=== PATIENT | female | born 1990 | race Caucasian/White ===

== ENCOUNTER → 2019-08-14 10:08 | Outpatient (BNVA) | payer SELFPAY | PROVIDERS: PCP Family Medicine; Visit Provider Family Medicine | DX: I10 Essential (primary) hypertension (principal); M79.641 Pain in right hand | CPT/HCPCS: 80053; 80061; 82044; 85025 ==

== ENCOUNTER → 2019-09-23 08:32 | Outpatient (BNVA) | payer SELFPAY | PROVIDERS: PCP Family Medicine; Visit Provider Family Medicine | DX: R53.83 Other fatigue (principal); Z01.419 Encounter for gynecological examination (general) (routine) without abnormal findings; F17.219 Nicotine dependence, cigarettes, with unspecified nicotine-induced disorders | CPT/HCPCS: 84443; 88175 ==

== ENCOUNTER → 2019-10-10 10:19 | Outpatient (BNVA) | payer SELFPAY | PROVIDERS: PCP Family Medicine; Visit Provider Nurse Practitioner Family | DX: M54.5 Low back pain (principal) | CPT/HCPCS: 81000; 81025 ==

== ENCOUNTER → 2020-01-24 17:56 | Outpatient (BNVA) | payer SELFPAY | PROVIDERS: PCP Family Medicine; Visit Provider Nurse Practitioner Family | DX: M79.671 Pain in right foot (principal) | CPT/HCPCS: 73610; 73630 ==

== ENCOUNTER → 2020-03-25 11:33 | Outpatient (BNVA) | payer SELFPAY | PROVIDERS: PCP Family Medicine; Visit Provider Nurse Practitioner Family | DX: M25.579 Pain in unspecified ankle and joints of unspecified foot (principal) | CPT/HCPCS: 73610 ==

== ENCOUNTER 2020-09-18 13:22 | Emergency (ER) | payer SELFPAY ==
[2020-09-18 13:42] VITALS: BP 120/83; PULSE 113; RESP 24; TEMP 37.3; O2SAT 97; BMI 41.7
[2020-09-18 14:19] VITALS: BP 112/95; PULSE 104; O2SAT 96
[2020-09-18 14:41] VITALS: BP 109/74; PULSE 101; RESP 26; O2SAT 95
--- NOTE | 2020-09-18 15:01 | ECG_ITS ---
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 Measurements Intervals Pablo Rate: 105 P: 50 PA: 140 QRS: 18 QRSD: 86 T: 34 QT: 337 QTc: 447 Interpretive Statements SINUS TACHYCARDIA POSSIBLE LEFT ATRIAL ENLARGEMENT [-0.1mV P WAVE IN V1/V2] LOW QRS VOLTAGE IN PRECORDIAL LEADS [QRS DEFLECTION < 1.0 mV IN CHEST LEADS] ABNORMAL RHYTHM ECG No previous ECG available for comparison Electronically Signed On 09-19-2020 23:15:37 CDT by Brittney Schaefer M.D. [email or web address]
--- NOTE | 2020-09-18 15:01 | XR_ITS ---
WS: [id number] Portable AP upright chest, 09/18/2020 Clinical Data: chest pain Comparison: Portable chest, 03/08/2019. Findings: No nodules, masses or effusions are seen. The heart is normal. The pulmonary vascularity is not increased. No pneumonia or pneumothorax is seen. Monitor leads are on the chest wall. XR/XR chest 1V portable [id number] Impression: Negative chest.
--- NOTE | 2020-09-18 15:01 | W.ED.CHESTPA ---
HPI - Chest Pain General: Chief Complaint: Chest Pain Stated Complaint: SOB, CP Time Seen by Provider: 09/18/20 14:17 Source: patient Mode of arrival: ambulatory Limitations: no limitations History of Present Illness: HPI narrative: NauseaPatient is a 30-year-old female who presents to ED today with a complaint of chest pain and vomiting. Patient tells me on Monday she was placed on clindamycin for abscesses to her groin and axillary regions. Patient states she has been taking the medication throughout the week without issues however this morning took a dose of her clindamycin and shortly after began developing substernal chest pain and nausea. She states she had one episode of vomiting. Patient was then able to eat breakfast. She tells me around lunchtime she took another clindamycin and yet again began developing substernal chest pain and nausea. She then had one episode of vomiting. No blood noted to her vomit. Chest pain that was present prior to the episode of vomiting. She does not feel nauseous currently. She has not had any diarrhea. She is not having abdominal pain. She does not feel short of breath. No cough. Associated symptoms: Reports nausea and vomiting; Deny abdominal pain, dyspnea, fever(s), palpitations or syncope Review of Systems Const: Denies: fever(s), chills, body aches, change in appetite, change in weight, fatigue or malaise Eyes: Denies: change in vision or blurry vision ENMT: Denies: throat pain or odynophagia Card: Reports: chest pain; Denies: palpitations, irregular heart rhythm, edema, swelling of feet/ankles, lightheadedness, syncope, pre-syncope, dyspnea on exertion, orthopnea, leg pain with exertion or acrocyanosis Resp: Denies: dyspnea, productive cough or pain on inspiration GI: Reports: nausea and vomiting; Denies: abdominal pain, hematemesis, coffee ground emesis, dysphagia, heartburn, diarrhea, pain on defecation or change in stool character : Denies: flank pain or dysuria Musc: Denies: neck pain, back pain or joint pain Skin/Breast: Denies: rash Neuro: Denies: headache(s), numbness in extremities, weakness in extremities or sensory changes REPLACED BY [facility] PFSH: Medical History (Updated 09/18/20 @ 16:28 by ANA MARIA Liriano) Essential hypertension Surgical History H/O hernia repair H/O tubal ligation History of cholecystectomy Family History Other Hypertension Social History Smoking and tobacco status: current every day smoker cigarettes Packs smoked per day: 0.5 Alcohol intake: never Female Reproductive History: Date of last menstrual period: 08/13/19 Physical Exam Const: COMMON NORMALS: no acute distress, patient oriented x3, no limitations and alert GENERAL APPEARANCE: cooperative NUTRITIONAL APPEARANCE: obese ORIENTATION/CONSCIOUSNESS: Yes awake, Yes oriented to person and Yes oriented to time HENMT: COMMON NORMALS: normocephalic and atraumatic HEAD & SCALP: normocephalic and atraumatic Neck/C-Spine: COMMON NORMALS: full ROM Chest: COMMONS NORMALS: normal inspection of the chest OTHER: TTP sternal chest Resp: COMMON NORMALS: normal respiratory effort and clear to auscultation bilaterally AUSCULTATION: clear to auscultation bilaterally Cardio: COMMON NORMALS: regular rate and regular rhythm RATE: regular rate RHYTHM: regular rhythm GI: COMMON NORMALS: Normal to inspection, nondistended, normoactive bowel sounds present, Soft to palpation, non-tender, No hepatosplenomegaly present and no masses PALPATION: Yes Soft to palpation and Yes No hepatosplenomegaly present Neuro: COMMON NORMALS: patient oriented x3 SENSORIUM/ORIENTATION: Yes alert, Yes oriented to person and Yes oriented to time Skin: COMMON NORMALS: no rashes or lesions noted GENERAL SKIN EXAM: no rashes or lesions noted Course Vital Signs: Vital signs: Vital Signs Temperature 99.2 F 09/18/20 13:42 Pulse Rate 86 09/18/20 15:44 Respiratory Rate 23 H 09/18/20 15:44 Blood Pressure 121/71 09/18/20 15:44 Pulse Oximetry 95 09/18/20 15:44 MDM - Chest Pain Lab Data: Labs: Lab Results 09/18/20 09/18/20 09/18/20 Range/Units 15:23 15:23 15:23 WBC 13.2 H (4.0-10.0) 10^3/ uL RBC 4.03 L (4.1-5.3) 10^6/u L Hgb 12.5 (11.5-15.3) g/dL Hct 34.5 L (37.0-47.0) % MCV 85.6 (81-99) fL MCH 31.0 (28.0-34.0) pg MCHC 36.2 H (30.0-36.0) g/dL RDW 12.2 (12.1-15.1) % Plt Count 370 (130-400) 10^3/c mm MPV 10.6 H (7.4-10.4) fL Neut % (Auto) 80.1 % Lymph % (Auto) 11.8 % [place] % (Auto) 6.4 % Eos % (Auto) 1.1 % Baso % (Auto) 0.3 % Neut # (Auto) 10.60 H (1.8-7.7) 10^3/u L Lymph # (Auto) 1.6 (0.8-4.8) 10^3/u L [place] # (Auto) 0.9 (0.2-0.9) 10^3/u L Eos # (Auto) 0.1 (0.0-0.8) 10^3/u L Baso # (Auto) 0.0 (0.0-0.1) 10^3/u L Nucleated RBC % (a uto) 0 % Nucleated RBCs # 0.0 /100WBC Sodium 137 (136-145) mmol/L Potassium 3.6 (3.5-5.1) mmol/L Chloride 99 (98-107) mmol/L Carbon Dioxide 28 (22-29) mmol/L Anion Gap 13.6 (5-19) BUN 10 (6-20) mg/dL Creatinine 0.6 (0.5-0.9) mg/dL GFR Calculation 116.6 (90-130) mL/min Glucose 96 (65-115) mg/dL Calculated Osmolal ity 283 L (285-295) mOsm/k g Calcium 9.2 (8.5-10.5) mg/dL Total Bilirubin 0.3 (0.15-1.2) mg/dL AST 20 (0-32) U/L ALT 22 (0-33) U/L Alkaline Phosphata se 64 (35-105) IU/L Troponin T Gen 5 n g/L 6 (0-10) ng/L Total Protein 6.4 L (6.6-8.7) g/dL Albumin 4.2 (3.5-5.2) g/dL Globulin 2.2 (1.3-4.6) g/dL Imaging Data^: CXR: Radiologist's impression: [address] [id number] ReportSigned Patient: Nubia Garcia #: [id number]: 1990Acct#:[id number]/Sex: 30 / FADM Date: 09/18/20Loc: ERRoom/Bed:Attending Dr: Ordering Provider/Ordering MD: Nata Locke Date of Service: 09/18/20 Procedure(s): XR chest 1V portable [id number] Accession Number(s): [id number] Report Number: [id number] WS: [id number] Portable AP upright chest, 09/18/2020 Clinical Data: chest pain Comparison: Portable chest, 03/08/2019. Findings: No nodules, masses or effusions are seen. The heart is normal. The pulmonary vascularity is not increased. No pneumonia or pneumothorax is seen. Monitor leads are on the chest wall. XR/XR chest 1V portable [id number] Impression: Negative chest. Dictated By:Vannesa Valladares MDSigned By:Vannesa Valladares MDSigned Date/Time:09/18/20 1510DD/ 1509 EKG Data^: EKG 1: EKG interpretation date: 09/18/20 EKG interpretation time: 14:04 Interpretation: Sinus tachycardia Rate [address] elevation or depression changes noted Discharge Plan Discharge Patient Disposition: Home Clinical Impression: Atypical chest pain, Adverse reaction to antibiotic Condition: Stable Prescriptions: No Action clindamycin HCl 300 mg capsule 300 mg PO Q8H Qty: 30 RF: 0 promethazine 25 mg tablet 25 mg PO Q6H PRN (Reason: nausea and vomiting) Qty: 10 RF: 0 lisinopril-hydrochlorothiazide 20-25 mg tablet 1 tab PO DAILY Qty: 30 RF: 2 Discharge Orders: Discharge ED (Routine); Ordered 09/18/20 Ordered By: Nata Locke Referrals: Jessica Tilley DO [Primary Care Provider] - Patient Instructions: Chest Pain - Noncardiac Coding Level of Care Code ED Neuro Intensivist Physician for Carlos Trevizo
[2020-09-18 15:35] LABS: Basophils % 0.3 %; Eosinophils # 0.1 10^3/uL (0.0-0.8); Eosinophils % 1.1 %; Hematocrit 34.5 % (37.0-47.0); Hemoglobin 12.5 g/dL (11.5-15.3); Lymphocytes # 1.6 10^3/uL (0.8-4.8); Lymphocytes % 11.8 %; Mean Corpuscular HGB Conc 36.2 g/dL (30.0-36.0); Mean Corpuscular Volume 85.6 fL (81-99); Mean Platelet Volume 10.6 fL (7.4-10.4); Monocytes # 0.9 10^3/uL (0.2-0.9); Monocytes % 6.4 %; Neutrophils % 80.1 %; Nucleated Red Blood Cells % 0 %; Platelet Count 370 10^3/cmm (130-400); Red Blood Count 4.03 10^6/uL (4.1-5.3); Red Cell Distribution Width 12.2 % (12.1-15.1); White Blood Count 13.2 10^3/uL (4.0-10.0)
[2020-09-18 15:44] VITALS: BP 121/71; PULSE 86; RESP 23; O2SAT 95
[2020-09-18 16:08] LABS: Alanine Aminotransferase 22 U/L (0-33); Albumin Level 4.2 g/dL (3.5-5.2); Alkaline Phosphatase 64 IU/L (35-105); Anion Gap 13.6 (5-19); Aspartate Amino Transferase 20 U/L (0-32); Blood Urea Nitrogen 10 mg/dL (6-20); Calcium 9.2 mg/dL (8.5-10.5); Carbon Dioxide 28 mmol/L (22-29); Chloride 99 mmol/L (98-107); Globulin 2.2 g/dL (1.3-4.6); Glomerular Filtration Rate 116.6 mL/min (90-130); Glucose 96 mg/dL (65-115); Osmolality Calculated 283 mOsm/kg (285-295); Potassium 3.6 mmol/L (3.5-5.1); Sodium 137 mmol/L (136-145); Total Bilirubin 0.3 mg/dL (0.15-1.2); Total Protein 6.4 g/dL (6.6-8.7)
[2020-09-18 16:12] LABS: Troponin T (5th) Once 6 ng/L (0-10)
[2020-09-18 16:47] VITALS: BP 103/71; PULSE 90; RESP 26; O2SAT 98
== END 2020-09-18 16:48 | disposition home or self-care (01) ==
PROVIDERS: Emergency Provider Physician Assistant; PCP Family Medicine
DX: R07.89 Other chest pain (principal); T36.95XA Adverse effect of unspecified systemic antibiotic, initial encounter; I10 Essential (primary) hypertension; F17.210 Nicotine dependence, cigarettes, uncomplicated
CPT/HCPCS: 71045; 80053; 84484; 85025; 93005; 99283

== ENCOUNTER → 2020-10-20 09:26 | Outpatient (BNVA) | payer SELFPAY | PROVIDERS: PCP Family Medicine; Visit Provider Family Medicine | DX: I10 Essential (primary) hypertension (principal); F41.8 Other specified anxiety disorders; F17.219 Nicotine dependence, cigarettes, with unspecified nicotine-induced disorders; Z68.41 Body mass index [BMI] 40.0-44.9, adult | CPT/HCPCS: 80053; 80061; 82043 ==

== ENCOUNTER → 2020-10-30 12:43 | Outpatient (BNVA) | payer OTHER, SELFPAY | PROVIDERS: PCP Family Medicine; Visit Provider Registered Nurse Neonatal Intensive Care | DX: Z20.822 Contact with and (suspected) exposure to COVID-19 (principal) | CPT/HCPCS: 87635 ==

== ENCOUNTER 2020-11-20 11:54 | Emergency (ER) | payer MEDICAID, SELFPAY ==
[2020-11-20 12:28] VITALS: BP 107/73; PULSE 97; RESP 15; TEMP 37.1; O2SAT 97; BMI 40.7
--- NOTE | 2020-11-20 12:46 | CTR_ITS ---
PROCEDURE INFORMATION: Exam: CT Abdomen And Pelvis With Contrast Exam date and time: 11/20/2020 12:46 PM Age: 30 years old Clinical indication: Severe lower quadrant abdominal pain. Prior cholecystectomy, appendectomy, hernia repair and tubal. TECHNIQUE: Imaging protocol: Computed tomography of the abdomen and pelvis with contrast. Radiation optimization: All CT scans at this facility use at least one of these dose optimization techniques: automated exposure control; mA and/or kV adjustment per patient size (includes targeted exams where dose is matched to clinical indication); or iterative reconstruction. Contrast material: OMNI 300; Contrast volume: 95 ml; Contrast route: INTRAVENOUS (IV); COMPARISON: CT abdomen pelvis w con* [id number] 07/03/2017 1:36 PM RADIATION DOSE METRICS: Total DLP (mGy-cm): 1664.29 FINDINGS: Lungs: The lung bases are unremarkable. No pericardial effusion. No hiatal hernia. Liver: The liver is enlarged measuring 21.1 cm. Gallbladder and bile ducts: The gallbladder has been removed. Pancreas: The pancreas is unremarkable. Spleen: The spleen is unremarkable. Adrenal glands: The adrenal glands are unremarkable. Kidneys and ureters: There is an obstructive stone at the right ureterovesical junction measuring 5.1 mm. There is moderate resultant hydronephrosis and hydroureter. A simple right renal cyst measures 1.8 cm. No hydronephrosis is seen on the left. Stomach and bowel: The stomach and small bowel are unremarkable.; The colon is unremarkable. Appendix: The appendix is present and appears unremarkable. Intraperitoneal space: No free intraperitoneal air is seen. Vasculature: No abdominal aortic aneurysm. Lymph nodes: No retroperitoneal lymphadenopathy. Urinary bladder: The bladder is largely decompressed. Reproductive: A right ovarian cyst measures 2.1 cm. Bones/joints: Unchanged deformity of the left femoral head. No acute fracture is seen. Soft tissues: There are small fat containing periumbilical and infraumbilical hernias. CT/CT abdomen pelvis w con* [id number] IMPRESSION: 1. Obstructive stone at the right ureterovesical junction measuring 5.1 mm. There is moderate resultant hydronephrosis and hydroureter. 2. Hepatomegaly. 3. Right ovarian cyst. COMMENTS: Consistent with the [employer]'s Incidental Findings Committee white paper (J Am Valentina Radiol 2018): Any incidental renal lesion less than 1 cm or classified as too small to characterize, or any incidental cystic renal lesion characterized as simple-appearing, is likely benign. No follow-up imaging is recommended for these lesions per consensus recommendations based on imaging criteria. Radiation Dose CTDIVOL = (mGy): DLP = 1664.29 (mGy-cm)
--- NOTE | 2020-11-20 12:47 | ED_ITS ---
HPI - Abdominal Pain General: Chief Complaint: Abdominal Pain Stated Complaint: LLQ ABD PAIN/ LEFT FLANK PAIN Time Seen by Provider: 11/20/20 12:36 History of Present Illness: HPI narrative: Patient states she has had severe left lower quadrant pain last couple days. Had nausea and vomiting since last night. Says pain radiates from the left abdomen to the left flank. MD elicited complaint: abdominal pain Pertinent past history: other (Abdominal pain) Onset (ago): day(s) Pain Consistency: constant Location: LLQ Severity: severe Quality: cramping, aching and sharp Radiation: L flank Exacerbating factors: movement Relieving factors: rest Associated Symptoms: Reports nausea and vomiting; Denies chills and fever(s) Related Data: Date of Last Menstrual Period: 11/02/20 Review of Systems Const: Denies: fever(s), chills or body aches Eyes: Denies: change in vision or blurry vision ENMT: Denies: throat pain or nasal congestion Card: Denies: chest pain or dyspnea on exertion Resp: Denies: dyspnea, productive cough or non-productive cough GI: Reports: abdominal pain, nausea and vomiting Musc: Denies: extremity pain Skin/Breast: Denies: rash Neuro: Denies: headache(s) Psych: Denies: anxiety or depression Yosef/Lymph: Denies: easy bruising PFSH ED PFSH: Medical History Essential hypertension Surgical History H/O hernia repair H/O tubal ligation History of cholecystectomy Family History Other Hypertension Social History Quit status (tobacco): not considering quitting Second hand smoke exposure: Yes Alcohol intake: never Desire information about alcohol rehabilitation?: No Desire information about substance/drug rehabilitation?: No Female Reproductive History: Date of last menstrual period: 11/02/20 Physical Exam Const: COMMON NORMALS: no acute distress, average body habitus and patient oriented x3 HENMT: COMMON NORMALS: normocephalic HEAD & SCALP: normal to inspection and normocephalic FACE & SINUS: normal facial exam Eye: COMMON NORMALS: conjunctivae normal GENERAL EYE: appearance normal, both eyes and all related structures CONJUNCTIVA: Yes conjunctivae normal Neck/C-Spine: COMMON NORMALS: no JVD Chest: COMMONS NORMALS: normal inspection of the chest Resp: COMMON NORMALS: normal respiratory effort and clear to auscultation bilaterally AUSCULTATION: clear to auscultation bilaterally Cardio: COMMON NORMALS: no JVD, regular rate and regular rhythm RATE: regular rate RHYTHM: regular rhythm GI: INSPECTION: Yes normal to inspection AUSCULTATION: Yes normoactive bowel sounds PALPATION: Yes Tenderness to palpation present (GI) Details: LLQ Extremity: COMMON NORMALS: normal to inspection and full ROM Neuro: COMMON NORMALS: patient oriented x3 Course Vital Signs: Vital signs: Vital Signs Temperature 98.7 F 11/20/20 12:28 Pulse Rate 97 11/20/20 12:28 Respiratory Rate 18 11/20/20 15:14 Blood Pressure 107/73 11/20/20 12:28 Pulse Oximetry 97 11/20/20 12:28 MDM - Abdominal Pain MDM Narrative: Medical decision making narrative: CT report shows obstructive stone in the right UV junction measuring 5.1 mm moderate hydronephrosis and hydroureter. In resting her pain is more in the left. No signs of acute UTI. BUN/creatinine look good patient will be fall up but Dr. Duffy. Lab Data: Labs: Lab Results 11/20/20 11/20/20 11/20/20 Range/Units 12:55 12:55 12:55 WBC 9.7 (4.0-10.0) 10^3/ uL RBC 4.71 (4.1-5.3) 10^6/u L Hgb 14.0 (11.5-15.3) g/dL Hct 40.9 (37.0-47.0) % MCV 86.8 (81-99) fl MCH 29.7 (28.0-34.0) pg MCHC 34.2 (30.0-36.0) g/dL RDW 12.9 (12.1-15.1) % Plt Count 410 H (130-400) 10^3/c mm MPV 10.7 H (7.4-10.4) fL Neut % (Auto) 68.7 % Lymph % (Auto) 21.9 % [place] % (Auto) 7.0 % Eos % (Auto) 1.7 % Baso % (Auto) 0.4 % Neut # (Auto) 6.66 (1.8-7.7) 10^3/u L Lymph # (Auto) 2.1 (0.8-4.8) 10^3/u L [place] # (Auto) 0.7 (0.2-0.9) 10^3/u L Eos # (Auto) 0.2 (0.0-0.8) 10^3/u L Baso # (Auto) 0.0 (0.0-0.1) 10^3/u L Nucleated RBC % (a uto) 0 % Nucleated RBCs # 0.0 /100WBC Sodium 136 (136-145) mmol/L Potassium 3.5 (3.5-5.1) mmol/L Chloride 97 L (98-107) mmol/L Carbon Dioxide 26 (22-29) mmol/L Anion Gap 16.5 (5-19) BUN 5 L (6-20) mg/dL Creatinine 0.6 (0.5-0.9) mg/dL GFR Calculation 116.6 (90-130) mL/min Glucose 93 (65-115) mg/dL Calculated Osmolal ity 279 L (285-295) mOsm/k g Calcium 9.4 (8.5-10.5) mg/dL Total Bilirubin 0.4 (0.15-1.2) mg/dL AST 18 (0-32) U/L ALT 23 (0-33) U/L Alkaline Phosphata se 74 (35-105) IU/L Total Protein 7.2 (6.6-8.7) g/dL Albumin 4.5 (3.5-5.2) g/dL Globulin 2.7 (1.3-4.6) g/dL Lipase 21 (13-60) U/L Urine Color Straw (Yellow) Urine Appearance Clear (CLEAR) Urine pH 8 H (5-7) Ur Specific Gravit y 1.010 (1.005-1.030) Urine Protein Neg (Negative) Urine Glucose (UA) Norm (Normal) Urine Ketones Negative (Negative) Urine Blood 2+ H (Negative) Urine Nitrate Negative (Negative) Urine Bilirubin Neg (Negative) Prot Sulfosalicyli c Acd Negative (Negative) Urine Urobilinogen Norm (Negative) mg/dL Ur Leukocyte Marlee ase Negative (Negative) Urine RBC 10-15 H (0-2) /hpf Urine WBC 0-4 H (0-5) /hpf Ur Squamous Epith Cells 5-10 H (0-5) /hpf Amorphous Sediment Not Reportable Urine Bacteria 1+ H (NONE) /hpf Discharge Plan Discharge Patient Disposition: Home Clinical Impression: Calculus of ureterovesical junction (UVJ) Condition: Stable Prescriptions: New hydrocodone-acetaminophen 5-325 mg tablet 1 tab PO TID PRN (Reason: pain) Qty: 14 RF: 0 Zofran 4 mg tablet 4 mg PO Q8H 3 Days Qty: 9 RF: 0 Flomax 0.4 mg capsule 0.4 mg PO DAILY Qty: 7 RF: 0 No Action sertraline [Zoloft] 50 mg tablet 50 mg PO DAILY Qty: 30 RF: 0 lisinopril-hydrochlorothiazide 20-25 mg tablet 1 tab PO DAILY Qty: 30 RF: 5 Discharge Orders: Discharge ED (Routine); Ordered 11/20/20 Ordered By: Abdirashid Merida Referrals: Jessica Tilley DO [Primary Care Provider] - Discharge Diet: Advance as tolerated Discharge Activity: Increase activity as tolerated Patient Instructions: Kidney Stones (ED), How to Strain Your Urine (ED), Opioid Safety Activity Restrictions/Additional Instructions: Follow-up with medical provider as directed. Take medications as prescribed. Return to the ER or your medical provider if condition worsens. Please read and understand discharge instructions. If any questions ask please. Hospital will contact you Monday for follow-up appointment with Dr. Duffy's office. 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
[2020-11-20 13:04] LABS: Basophils % 0.4 %; Eosinophils # 0.2 10^3/uL (0.0-0.8); Eosinophils % 1.7 %; Hematocrit 40.9 % (37.0-47.0); Lymphocytes # 2.1 10^3/uL (0.8-4.8); Lymphocytes % 21.9 %; Mean Corpuscular HGB Conc 34.2 g/dL (30.0-36.0); Mean Corpuscular Hemoglobin 29.7 pg (28.0-34.0); Mean Corpuscular Volume 86.8 fl (81-99); Mean Platelet Volume 10.7 fL (7.4-10.4); Monocytes # 0.7 10^3/uL (0.2-0.9); Neutrophils # 6.66 10^3/uL (1.8-7.7); Neutrophils % 68.7 %; Nucleated Red Blood Cells % 0 %; Platelet Count 410 10^3/cmm (130-400); Red Blood Count 4.71 10^6/uL (4.1-5.3); Red Cell Distribution Width 12.9 % (12.1-15.1); White Blood Count 9.7 10^3/uL (4.0-10.0)
[2020-11-20 13:25] LABS: Alanine Aminotransferase 23 U/L (0-33); Albumin Level 4.5 g/dL (3.5-5.2); Alkaline Phosphatase 74 IU/L (35-105); Anion Gap 16.5 (5-19); Aspartate Amino Transferase 18 U/L (0-32); Blood Urea Nitrogen 5 mg/dL (6-20); Calcium 9.4 mg/dL (8.5-10.5); Carbon Dioxide 26 mmol/L (22-29); Chloride 97 mmol/L (98-107); Globulin 2.7 g/dL (1.3-4.6); Glomerular Filtration Rate 116.6 mL/min (90-130); Glucose 93 mg/dL (65-115); Lipase 21 U/L (13-60); Osmolality Calculated 279 mOsm/kg (285-295); Potassium 3.5 mmol/L (3.5-5.1); Sodium 136 mmol/L (136-145); Total Bilirubin 0.4 mg/dL (0.15-1.2); Total Protein 7.2 g/dL (6.6-8.7)
[2020-11-20] MEDS: iohexol 300 mg/mL 100 mL Btl IV (13:37)
[2020-11-20 13:40] LABS: Add Urine Microscopic? YES; Bilirubin Urine Neg (Negative); Blood Urine 2+ (Negative); Glucose Urine UA Norm (Normal); Ketones Urine Negative (Negative); Leukocyte Esterase Urine Negative (Negative); Nitrate Urine Negative (Negative); Protein Urine Neg (Negative); Sulfosalicylic Acid Urine Negative (Negative); Urine Appearance Clear (CLEAR); Urine Color Straw (Yellow); Urobilinogen Urine Norm (Negative); pH Urine 8 (5-7)
[2020-11-20 13:42] LABS: Add Urine Culture? Yes; Bacteria Urine 1+ /hpf; WBC Urine 0-4 /hpf (0-5)
[2020-11-20] MEDS: sodium chloride 0.9% 1,000 ML 999 ML IV (14:52)
[2020-11-20] MEDS: ondansetron 2 mg/ML SDV 2 mL 4 MG IVP (15:09)
[2020-11-20 15:14] VITALS: RESP 18
[2020-11-20] MEDS: morphine 4 mg/mL SDV 1 mL IVP (15:14)
--- NOTE | 2020-11-20 15:21 | PC.NURSE ---
patient on shot time for narcotic, waiting for double bottom driver.
--- NOTE | 2020-11-23 11:58 | DCPLANNER ---
fish hatchery manager had message to schedule a follow up appointment for patient with Dr. Duffy. fish hatchery manager called the office of Dr. Duffy, spoke with Brie, gave clinic patients information. fish hatchery manager was told that patients information would be printed and reviewed. Clinic will call patient with appointment information.
--- NOTE | 2020-11-27 11:39 | DCPLANNER ---
manager report called the office of Dr. Duffy to confirm that an appointment was scheduled for patient. manager report spoke with Brie, was told that patient no longer needed the appointment.
== END 2020-11-20 15:49 | disposition home or self-care (01) ==
PROVIDERS: Emergency Provider Nurse Practitioner Family; PCP Family Medicine
DX: N13.2 Hydronephrosis with renal and ureteral calculous obstruction (principal); I10 Essential (primary) hypertension
CPT/HCPCS: 74177; 80053; 81000; 81001; 83690; 85025; 87086; 96361; 96374; 96375; 99283; J2270; J2405; J7030; Q9967

== ENCOUNTER → 2021-01-19 16:38 | Outpatient (BNVA) | payer OTHER, SELFPAY | PROVIDERS: PCP Family Medicine; Visit Provider Nurse Practitioner Family | DX: Z20.822 Contact with and (suspected) exposure to COVID-19 (principal); J06.9 Acute upper respiratory infection, unspecified | CPT/HCPCS: 87635 ==

== ENCOUNTER → 2021-01-22 10:30 | Outpatient (BNVA) | payer MEDICAID, SELFPAY | PROVIDERS: PCP Family Medicine; Visit Provider Registered Nurse Neonatal Intensive Care | DX: Z20.822 Contact with and (suspected) exposure to COVID-19 (principal); J06.9 Acute upper respiratory infection, unspecified | CPT/HCPCS: 87400; 87426 ==

== ENCOUNTER 2021-08-11 12:44 | Emergency (ER) | payer MEDICAID, SELFPAY ==
[2021-08-11 12:48] VITALS: BP 128/88; PULSE 89; RESP 20; TEMP 36.8; O2SAT 98
--- NOTE | 2021-08-11 15:16 | ED_ITS ---
HPI - Abdominal Pain General: Chief Complaint: Abdominal Pain Stated Complaint: Back and stomach pain Time Seen by Provider: 08/11/21 15:01 Source: patient Mode of arrival: ambulatory Limitations: no limitations History of Present Illness: 32-year-old female presents to the emergency room with complaint of back pain radiates around into her flanks and into her abdomen at times. She has been somewhat nauseous she has not vomited she denies dysuria urgency or frequency. Is worse when she moves. She cannot recall any precipitating event and she has noticed that laying still makes it better movement makes it worse. She denies any hematemesis or coffee-ground emesis. MD elicited complaint: flank pain Onset (ago): day(s) Location: Other (Back pain) Severity: moderate Quality: aching Radiation: bilateral flank Migration to: bilateral flank Exacerbating factors: movement Relieving factors: rest Associated Symptoms: Denies belching, bloating, change in bowel habits, change in stool character, chills, coffee ground emesis, constipation, GI cramping, diarrhea, dyspepsia, dysuria, excessive flatus, fever(s), heartburn, hematochezia, hematuria, hematemesis, fecal incontinence, loose stools, melena, nausea, poor appetite and vomiting Related Data: Date of Last Menstrual Period: 07/24/21 Review of Systems Const: Denies: fever(s), chills, body aches or change in appetite ENMT: Denies: throat pain, ear or mastoid pain, nasal discharge or nasal congestion Card: Denies: chest pain, edema, dyspnea on exertion or orthopnea Resp: Denies: dyspnea, productive cough or non-productive cough GI: Denies: nausea, vomiting, hematemesis, coffee ground emesis, heartburn, diarrhea, constipation, bloating, GI cramping, belching, excessive flatus, fecal incontinence, change in bowel habits, change in stool character, hematochezia or melena : Denies: dysuria or hematuria Skin/Breast: Denies: rash or pruritus PFSH ED PFSH: Medical History Essential hypertension Surgical History H/O hernia repair H/O tubal ligation History of cholecystectomy Family History Other Hypertension Social History Smoking and tobacco status: current every day smoker cigarettes Packs smoked per day: 0.5 Quit status (tobacco): not considering quitting Second hand smoke exposure: Yes Alcohol intake: never Desire information about alcohol rehabilitation?: No Desire information about substance/drug rehabilitation?: No Female Reproductive History: Date of last menstrual period: 07/24/21 Physical Exam Const: COMMON NORMALS: no acute distress GENERAL APPEARANCE: cooperative and comfortable ORIENTATION/CONSCIOUSNESS: Yes awake, Yes oriented to person, Yes oriented to place and Yes oriented to time HENMT: COMMON NORMALS: normocephalic, atraumatic and hearing grossly normal bilaterally HEAD & SCALP: normocephalic and atraumatic Neck/C-Spine: COMMON NORMALS: no JVD Resp: COMMON NORMALS: normal respiratory effort, No retractions, No use of accessory muscles and clear to auscultation bilaterally AUSCULTATION: clear to auscultation bilaterally Cardio: COMMON NORMALS: no JVD, regular rate, regular rhythm and No murmurs present (Cardio) RATE: regular rate RHYTHM: regular rhythm GI: COMMON NORMALS: Soft to palpation and No hepatosplenomegaly present AUSCULTATION: Yes normoactive bowel sounds PALPATION: Yes Soft to palpation, No Tenderness to palpation present (GI), No Guarding due to palpation present (GI) and Yes No hepatosplenomegaly present Extremity: COMMON NORMALS: normal to inspection, capillary refill normal, no clubbing, cyanosis or edema, no calf tenderness and no pedal edema Neuro: SENSORIUM/ORIENTATION: Yes oriented to person, Yes oriented to place and Yes oriented to time Skin: COMMON NORMALS: no rashes or lesions noted GENERAL SKIN EXAM: no rashes or lesions noted Course Vital Signs: Vital signs: Vital Signs Temperature 98.2 F 08/11/21 12:48 Pulse Rate 86 08/11/21 17:24 Respiratory Rate 15 08/11/21 17:24 Blood Pressure 144/107 08/11/21 17:24 Pulse Oximetry 100 08/11/21 17:24 MDM - Abdominal Pain Medical Decision Making Labs reviewed. Exam initially abdomen is benign. Repeat exam at time of discharge is also benign. Patient given ketorolac dexamethasone and Norflex for pain discharged home with treatment for back pain if symptoms worsen or change return. Medical Records I reviewed the patient's medical records. Lab Data I reviewed the patient's lab results. : 08/11/21 15:22 08/11/21 15: Labs/Radiology: Laboratory Results WBC 8.0 10^3/uL (4.0-10.0) 08/11/21 15: RBC 4.88 10^6/uL (4.1-5.3) 08/11/21 15: Hgb 14.8 g/dL (11.5-15.3) 08/11/21: Hct 42.8 % (37.0-47.0) 08/11/21: MCV 87.7 fl (81-99) 08/11/21: MCH 30.3 pg (28.0-34.0) 08/11/21: MCHC 34.6 g/dL (30.0-36.0) 08/11/21: RDW 12.8 % (12.1-15.1) 08/11/21: Plt Count 388 10^3/cmm (130-400) 08/11/21: MPV 10.7 fL (7.4-10.4) H 08/11/21 15: Neut % (Auto) 64.2 % 08/11/21 15: Lymph % (Auto) 25.5 % 08/11/21: Norton % (Auto) 8.0 % 08/11/21 15: Eos % (Auto) 1.7 % 08/11/21: Baso % (Auto) 0.4 % 08/11/21: Neut # (Auto) 5.15 10^3/uL (1.8-7.7) 08/11/21: Lymph # (Auto) 2.1 10^3/uL (0.8-4.8) 08/11/21 15:22 Norton # (Auto) 0.6 10^3/uL (0.2-0.9) 08/11/21 15:22 Eos # (Auto) 0.1 10^3/uL (0.0-0.8) 08/11/21 15: Baso # (Auto) 0.0 10^3/uL (0.0-0.1) 08/11/21 15: Nucleated RBC % (auto) 0 % 08/11/21 15: Nucleated RBCs # 0.0 /100WBC 08/11/21 15: Sodium 137 mmol/L (136-145) 08/11/21 15: Potassium 3.7 mmol/L (3.5-5.1) 08/11/21 15: Chloride 99 mmol/L (98-107) 08/11/21 15: Carbon Dioxide 26 mmol/L (22-29) 08/11/21 15: Anion Gap 15.7 (5-19) 08/11/21 15: BUN 8 mg/dL (6-20) 08/11/21 15: Creatinine 0.7 mg/dL (0.5-0.9) 08/11/21 15: GFR Calculation 97.0 mL/min (90-130) 08/11/21 15: Glucose 97 mg/dL (65-115) 08/11/21 15: Calculated Osmolality 282 mOsm/kg (285-295) L 08/11/21 15: Calcium 9.8 mg/dL (8.5-10.5) 08/11/21 15: Total Bilirubin 0.5 mg/dL (0.15-1.2) 08/11/21 15: AST 31 U/L (0-32) 08/11/21 15: ALT 34 U/L (0-33) H 08/11/21 15: Alkaline Phosphatase 68 IU/L (35-105) 08/11/21 15: Total Protein 7.2 g/dL (6.6-8.7) 08/11/21 15: Albumin 4.6 g/dL (3.5-5.2) 08/11/21 15: Globulin 2.6 g/dL (1.3-4.6) 08/11/21 15: Lipase 20 U/L (13-60) 08/11/21 15:22 Urine Color Kezia (Yellow) 08/11/21 15: Urine Appearance Hazy (CLEAR) A 05/04/22 15:22 Urine pH 5 (5-7) 08/11/21 15:22 Ur Specific Norman 1.025 (1.005-1.030) 08/11/21 15:22 Urine Protein Trace (Negative) 08/11/21 15:22 Urine Glucose (UA) Norm (Normal) 08/11/21 15:22 Urine Ketones Negative (Negative) 08/11/21 15:22 Urine Blood Neg (Negative) 08/11/21 15:22 Urine Nitrate Negative (Negative) 08/11/21 15:22 Urine Bilirubin 1+ (Negative) H 08/11/21 15:22 Urine Urobilinogen 1 mg/dL (Negative) H 08/11/21 15:22 Ur Leukocyte Esterase Negative (Negative) 08/11/21 15:22 Discharge Plan Discharge Patient Disposition: Home Clinical Impression: Back pain Condition: Stable Prescriptions: New prednisone 20 mg tablet 20 mg PO TID Qty: 15 0RF Rx Instructions: 1 p.o. 3 times daily x3 days, 1 p.o. twice daily x2 days, 1 p.o. daily x2 days diclofenac sodium 75 mg tablet,delayed release (DR/EC) 75 mg PO Q12H PRN (Reason: pain) Qty: 20 0RF tizanidine 4 mg capsule 4 mg PO Q8H PRN (Reason: muscle spasticity) Qty: 30 0RF No Action ibuprofen 200 mg Tablet 400 mg PO Q6H PRN (Reason: Pain) 0RF lisinopril-hydrochlorothiazide 20-25 mg tablet 1 tab PO QAM 0RF Discharge Orders: Discharge ED (Routine); Ordered 08/11/21 Ordered By: Anirudh Leigh Referrals: Jessica Tilley DO [Primary Care Provider] - Discharge Diet: Usual diet Discharge Activity: Increase activity as tolerated Patient Instructions: Opioid Safety Activity Restrictions/Additional Instructions: Follow-up with your primary care doctor. Stand Alone Forms: Work/School Release Coding Level of Care Code ED Hematology Oncology Consultant for Carlos Trevizo
[2021-08-11 15:30] VITALS: BP 153/113; PULSE 88; RESP 16; O2SAT 94
[2021-08-11 15:31] LABS: Add Urine Microscopic? NO; Charge for UA Resulting for Rev
[2021-08-11] MEDS: promethazine 25 mg/mL SDV 1 mL IM (15:35)
[2021-08-11 15:37] LABS: Basophils % 0.4 %; Eosinophils # 0.1 10^3/uL (0.0-0.8); Eosinophils % 1.7 %; Hematocrit 42.8 % (37.0-47.0); Hemoglobin 14.8 g/dL (11.5-15.3); Lymphocytes # 2.1 10^3/uL (0.8-4.8); Lymphocytes % 25.5 %; Mean Corpuscular HGB Conc 34.6 g/dL (30.0-36.0); Mean Corpuscular Hemoglobin 30.3 pg (28.0-34.0); Mean Corpuscular Volume 87.7 fl (81-99); Mean Platelet Volume 10.7 fL (7.4-10.4); Monocytes # 0.6 10^3/uL (0.2-0.9); Neutrophils # 5.15 10^3/uL (1.8-7.7); Neutrophils % 64.2 %; Nucleated Red Blood Cells % 0 %; Platelet Count 388 10^3/cmm (130-400); Red Blood Count 4.88 10^6/uL (4.1-5.3); Red Cell Distribution Width 12.8 % (12.1-15.1)
[2021-08-11] MEDS: ketorolac 30 mg/mL INJ IVP ×2 (15:38→17:10)
[2021-08-11 15:45] LABS: Bilirubin Urine 1+ (Negative); Blood Urine Neg (Negative); Glucose Urine UA Norm (Normal); Ketones Urine Negative (Negative); Leukocyte Esterase Urine Negative (Negative); Nitrate Urine Negative (Negative); Protein Urine Trace (Negative); Specific Gravity, Urine 1.025 (1.005-1.030); Urine Appearance Hazy (CLEAR); Urine Color Amber (Yellow); Urobilinogen Urine 1 mg/dL (Negative); pH Urine 5 (5-7)
[2021-08-11 15:56] LABS: Alanine Aminotransferase 34 U/L (0-33); Albumin Level 4.6 g/dL (3.5-5.2); Alkaline Phosphatase 68 IU/L (35-105); Blood Urea Nitrogen 8 mg/dL (6-20); Calcium 9.8 mg/dL (8.5-10.5); Carbon Dioxide 26 mmol/L (22-29); Chloride 99 mmol/L (98-107); Globulin 2.6 g/dL (1.3-4.6); Glucose 97 mg/dL (65-115); Lipase 20 U/L (13-60); Osmolality Calculated 282 mOsm/kg (285-295); Sodium 137 mmol/L (136-145); Total Bilirubin 0.5 mg/dL (0.15-1.2); Total Protein 7.2 g/dL (6.6-8.7)
[2021-08-11 15:58] LABS: Anion Gap 15.7 (5-19); Aspartate Amino Transferase 31 U/L (0-32); Potassium 3.7 mmol/L (3.5-5.1)
[2021-08-11] MEDS: orphenadrine 30 mg/mL Inj 2 mL 60 MG IVP (17:10)
[2021-08-11] MEDS: dexamethasone 10 mg/mL INJ IVP (17:10)
[2021-08-11 17:24] VITALS: BP 144/107; PULSE 86; RESP 15; O2SAT 100
== END 2021-08-11 17:25 | disposition home or self-care (01) ==
PROVIDERS: Physician Assistant; Emergency Provider Family Medicine; PCP Family Medicine
DX: M54.9 Dorsalgia, unspecified (principal); I10 Essential (primary) hypertension; F17.210 Nicotine dependence, cigarettes, uncomplicated
CPT/HCPCS: 80053; 81003; 83690; 85025; 96372; 96374; 96375; 96376; 99284; J1100; J1885; J2360; J2550

== ENCOUNTER → 2022-01-07 08:09 | Outpatient (BNVA) | payer MEDICAID, SELFPAY | PROVIDERS: PCP Family Medicine; Visit Provider Family Medicine | DX: Z01.419 Encounter for gynecological examination (general) (routine) without abnormal findings (principal); N92.6 Irregular menstruation, unspecified | CPT/HCPCS: 87624 ==

== ENCOUNTER → 2022-01-11 15:41 | Outpatient (BNVA) | payer MEDICAID, SELFPAY | PROVIDERS: PCP Family Medicine; Visit Provider Family Medicine | DX: Z01.419 Encounter for gynecological examination (general) (routine) without abnormal findings (principal); N92.6 Irregular menstruation, unspecified; F17.219 Nicotine dependence, cigarettes, with unspecified nicotine-induced disorders | CPT/HCPCS: 81025 ==

== ENCOUNTER → 2022-04-06 14:11 | Outpatient (BNVA) | payer MEDICAID, SELFPAY | PROVIDERS: PCP Family Medicine; Referring Provider Family Medicine; Visit Provider Specialist | DX: G56.01 Carpal tunnel syndrome, right upper limb (principal) | CPT/HCPCS: 73110 ==

== ENCOUNTER 2022-04-06 15:23 | Outpatient (CLI) | payer MEDICAID, SELFPAY | END 2022-04-06 15:24 | disposition home or self-care (01) | LOC: SPT 15:24 | PROVIDERS: PCP Family Medicine; Visit Provider Specialist | DX: Z46.89 Encounter for fitting and adjustment of other specified devices (principal); G56.01 Carpal tunnel syndrome, right upper limb | CPT/HCPCS: 97760; L3908 ==

== ENCOUNTER → 2022-04-22 06:42 | Day surgery (SDC) | payer MEDICAID, SELFPAY ==
[2022-04-21 11:46] VITALS: BMI 44.4
[2022-04-22 06:56] VITALS: BP 139/97; PULSE 98; RESP 17; TEMP 36.2; O2SAT 99
[2022-04-22 07:09] LABS: OR HCG Qualitative Urine Negative (Negative)
[2022-04-22] MEDS: CELEcoxib 200 mg Capsule 400 MG PO (07:29)
[2022-04-22] MEDS: acetaminophen 1,000 MG/100 ML PIGGYBACK 400 MG IV (07:29)
[2022-04-22] MEDS: sodium chloride 0.9% 1,000 ML 30 ML IV (07:29)
--- NOTE | 2022-04-22 07:32 | ANES.PREANE2 ---
Pre-Anesthetic Assessment Height/Weight: Height 1.57 m Weight 110.223 kg Temp Pulse Resp BP Pulse Ox O2 Del Method 97.2 F L 98 17 139/97 99 04/22/22 06:56 04/22/22 06:56 04/22/22 06:56 04/22/22 06:56 04/22/22 06:56 04/22/22 07:01 Preop Diagnosis: Right carpal tunnel syndrome Operation Date: 04/22/22 08:25 Proposed Procedures p Carpal Tunnel Release RIGHT 34416/G56.00(Right) - Gloria Ortiz MD Familial anesthetic complications: None Was Beta Yadiel taken within 24 hours: N/A Was Clonidine taken within 24 hours: N/A Last intake: Intake Last Liquid Date 04/21/22 Last Liquid Time 20:30 Last Solid Date 04/21/22 Last Solid Time 18:30 Social Tobacco and No alcohol Exam alert, oriented x 3, clear to auscultation bilaterally and regular rate & rhythm Airway Mallampati: Class IV Dentition: other (multiple missing and remaining are poor ) Comments: Comments: small mouth opening, large neck CV/HEM Hypertension Metabolic Morbid Obesity Neuropsych Neuropathy Anesthetic Plan ASA status: 2 Anesthesia: General Risk of > 500 ml blood loss (7ml/kg in children): No Medications/Allergies Home Medications Medication Instructions Recorded Confirmed Last Taken Type ibuprofen 200 mg tablet 400 mg PO Q6H PRN Pain 08/11/21 04/21/22 04/15/22 History lisinopril 20 1 tab PO QAM #90 tabs 10/29/21 04/22/22 04/21/22 08:00 Rx mg-hydrochlorothiazide 25 mg tablet cock up right wrist splint #1 ea 04/06/22 04/06/22 Unknown Rx Allergies Allergy/AdvReac Type Severity Reaction Status Date / Time sulfamethoxazole Allergy Severe hives, Verified 04/22/22 06:54 [From Bactrim] difficulty breathing trimethoprim [From Bactrim] Allergy Severe hives, Verified 04/22/22 06:54 difficulty breathing Current Medications Generic Name Dose Route Start Last Admin Trade Name Freq PRN Reason Stop Dose Admin Sodium Chloride 1,000 mls @ 30 mls/hr 04/22/22 07:00 04/22/22 07:29 Sodium Chloride 0.9% IV 04/23/22 06:59 30 mls/hr .Q24H TODD Administration PFSH Anesthesia Medical History Essential hypertension Surgical History H/O hernia repair H/O tubal ligation History of cholecystectomy Family History Other Hypertension Social History Smoking and tobacco status: current every day smoker (1ppd) cigarettes Packs smoked per day: 1 Quit status (tobacco): not considering quitting Second hand smoke exposure: Yes Alcohol intake: never Desire information about alcohol rehabilitation?: No Desire information about substance/drug rehabilitation?: No Female Reproductive History Date of last menstrual period: 07/24/21 Data Anesthesia Cardiac Studies: No Data to Display
--- NOTE | 2022-04-22 07:50 | P.HPUD_ITS ---
Surgery/Procedure H&P Update DATE OF PROCEDURE: April 22, 2022 DATE H&P PERFORMED: 04/06/22 H&P UPDATE INFORMATION: I have reviewed H&P completed within last 30 days, I have examined patient prior to procedure, No changes to prior documentation and H&P is in [facility] [place] EMR on date indicated PREOP DIAGNOSIS: Right carpal tunnel syndrome PLANNED PROCEDURE: Operation Date: 04/22/22 08:25 Proposed Procedures p Carpal Tunnel Release RIGHT 17261/G56.00(Right) - Gloria Ortiz MD Related Problem List Diagnoses (1) Carpal tunnel syndrome, right:
[2022-04-22] MEDS: ceFAZolin 2,000 MG in sodium chloride 0.9% (plus) 50 ML 100 MG IV (08:12)
[2022-04-22 08:30] LABS: Anion Gap 14.6 (5-19); Blood Urea Nitrogen 8 mg/dL (6-20); Calcium 9.6 mg/dL (8.5-10.5); Carbon Dioxide 25 mmol/L (22-29); Chloride 99 mmol/L (98-107); Glomerular Filtration Rate 115.9 mL/min (90-130); Glucose 104 mg/dL (65-115); Osmolality Calculated 279 mOsm/kg (285-295); Potassium 3.6 mmol/L (3.5-5.1); Sodium 135 mmol/L (136-145)
[2022-04-22 08:55] VITALS: BP 147/63; PULSE 110; RESP 16; TEMP 36.1; O2SAT 93
[2022-04-22 09:00] VITALS: BP 139/92; PULSE 113; RESP 15; O2SAT 99
--- NOTE | 2022-04-22 09:02 | PM.OP ---
Operative Report Date of procedure: April 22, 2022 Pre-op diagnosis: Right carpal tunnel syndrome Post-op diagnosis: Right carpal tunnel syndrome Post-op findings: Tight carpal canal with purplish discoloration of the median nerve Procedure done: Right carpal tunnel release Specimens removed/disposition: None Surgeon: Gloria Ortiz Anesthesia: General (Per LMA, ASA 2) Estimated blood loss (mL): 2 Tourniquet time (min): 20 (At 250 mmHg) IV fluids (mL): 300 Urine output (mL): 0 (No Bustamante) Complications: None Findings: Severe compression across the carpal canal with purplish discoloration and hourglass deformity of the median nerve Condition: stable Disposition: PACU (Then to same-day surgery for discharge to home) Brief History: Nubia Garcia is a new 31 year old female patient who is here today for right carpal tunnel release.? Patient has had a nerve conduction study previously. Patient states that the pain has been present for over a year, but the numbness has worsened over the past 6 months. Patient states thumb, index and long finger of right hand are numb with tingling.? Patient rated pain at 2 in clinic, but she states with movement it will jump higher. Risks and complications were discussed with the patient was in the office. Consents were signed and questions were answered. Procedure: The patient was brought to the operating theater. The patient had a general anesthesia per LMA, ASA 2. The tourniquet was elevated to 250 mmHg for a total tourniquet time of 20 minutes. The patient was also given Ancef 2 g preoperatively. The arm was then prepped and draped with DuraPrep in usual fashion with the arm draped free. A surgical pause was performed. At the time, the surgical pause, we confirmed the site and side of surgery. We also confirmed the patient's identity, appropriate and timely administration of preoperative antibiotics and preoperative surgical markings. An incision was then made along the thenar crease. The incision crossed the wrist joint in a curvilinear fashion. Dissection continued through skin and soft tissues using a scalpel. The palmaris longus was identified along with the transverse carpal ligament. Each of these was released carefully to avoid injury to the median nerve. We were able to dissect gently into the carpal canal which was noted to be quite tight with significant compression across the median nerve. The nerve was visualized and was an hourglass shape. After release, the canal was subsequently palpated to assure there was no bony encroachment upon the canal.? The canal was then palpated distally and proximally to assure that my small finger was passed easily without impingement. Finding this to be so, attention was directed to closure. The wound was irrigated with ropivacaine plain. It was then closed with 3-0 nylon in an interrupted mattress fashion. Sterile dressing was then placed consisting of Dermabond, OpSite, fluffed fluffs, sterile soft roll, and an Jamil wrap. The tourniquet was released after 20 minutes. There were no complications. There were no specimens. The procedure was well tolerated. Plan is the patient will be discharged home. Related Problem List Diagnoses (1) Carpal tunnel syndrome, right:
[2022-04-22 09:05] VITALS: BP 144/109; PULSE 114; RESP 17; O2SAT 98
[2022-04-22 09:10] VITALS: BP 165/109; PULSE 94; RESP 20; O2SAT 100
[2022-04-22 09:22] VITALS: BP 171/132; PULSE 84; RESP 17; TEMP 36.2; O2SAT 99
[2022-04-22] MEDS: HYDROcodone-acetaminophen 10-325 mg Tablet 1 TAB PO (09:50)
--- NOTE | 2022-04-22 19:46 | ANE.PACU2 ---
Inpatient post-anesthesia follow up: Airway intact: Yes Vital signs: Temperature 97.2 F Pulse Rate 84 Respiratory Rate 17 Blood Pressure 171/132 Pulse Oximetry 99 Oxygen Delivery Me thod Room Air Oxygen Flow Rate Fraction of Inspir ed Oxygen Hydration adequate: Yes Nausea and vomiting: No Pain level: 1 Mental status: Baseline
== END | disposition home or self-care (01) ==
PROVIDERS: Anesthesiology; PCP Family Medicine; Visit Provider Specialist
PROC: (CPT 64721; principal; 2022-04-22 08:15)
DX: G56.01 Carpal tunnel syndrome, right upper limb (principal); I10 Essential (primary) hypertension; E66.01 Morbid (severe) obesity due to excess calories; Z68.41 Body mass index [BMI] 40.0-44.9, adult; F17.210 Nicotine dependence, cigarettes, uncomplicated
CPT/HCPCS: 64721; 80048; 81025; 84703; J0131; J0690; J2704; J3010; J3490; J7030

== ENCOUNTER → 2022-08-11 13:57 | Outpatient (BNVA) | payer MEDICAID, SELFPAY | PROVIDERS: PCP Family Medicine; Visit Provider Family Medicine | DX: I10 Essential (primary) hypertension (principal); R53.83 Other fatigue | CPT/HCPCS: 80053; 80061; 82043; 84443; 85025 ==

== ENCOUNTER → 2023-06-29 10:43 | Outpatient (BNVA) | payer MEDICAID, SELFPAY | PROVIDERS: PCP Family Medicine; Visit Provider Physician Assistant | DX: R10.9 Unspecified abdominal pain (principal) | CPT/HCPCS: 81000 ==

== ENCOUNTER → 2023-08-02 09:35 | Outpatient (BNVA) | payer MEDICAID, SELFPAY | PROVIDERS: PCP Family Medicine; Visit Provider Nurse Practitioner Family | DX: J02.9 Acute pharyngitis, unspecified (principal); J34.89 Other specified disorders of nose and nasal sinuses | CPT/HCPCS: 87071; 87880 ==

== ENCOUNTER → 2023-08-31 10:42 | Outpatient (BNVA) | payer MEDICAID, SELFPAY | PROVIDERS: PCP Family Medicine; Visit Provider Family Medicine | DX: I10 Essential (primary) hypertension (principal); Z13.6 Encounter for screening for cardiovascular disorders; H69.90 Unspecified Eustachian tube disorder, unspecified ear; G47.10 Hypersomnia, unspecified | CPT/HCPCS: 80053; 80061; 85025 ==

== ENCOUNTER → 2023-11-05 10:47 | Outpatient (BNVA) | payer MEDICAID, SELFPAY | PROVIDERS: PCP Family Medicine; Visit Provider Nurse Practitioner | DX: R52 Pain, unspecified (principal); B34.9 Viral infection, unspecified | CPT/HCPCS: 87400; 87426 ==

== ENCOUNTER → 2024-01-14 10:26 | Outpatient (BNVA) | payer MEDICAID, SELFPAY | PROVIDERS: PCP Family Medicine; Visit Provider Nurse Practitioner | DX: J02.9 Acute pharyngitis, unspecified (principal) | CPT/HCPCS: 87880 ==

== ENCOUNTER 2024-07-23 14:47 | Outpatient (CLI) | payer MEDICAID, SELFPAY ==
--- NOTE | 2024-07-23 14:52 | XRR_ITS ---
PROCEDURE INFORMATION: Exam: XR Right Shoulder Exam date and time: 07/23/2024 3:31 PM Age: 33 years old Clinical indication: Pain; Right; X1 month ago shoulder popped while working; Additional info: Acute right shoulder pain TECHNIQUE: Imaging protocol: Radiologic exam of the right shoulder. Views: 2 or more views. COMPARISON: [place] [id number] 07/23/2024 3:31 PM FINDINGS: Bones/joints: No fracture or dislocation is seen about the right shoulder. No abnormal widening or separation of the right AC joint. Osseous structures show no acute abnormality. No abnormal soft tissue calcification is seen about the shoulder joint. Soft tissues: No significant soft tissue abnormality. XR/XR shoulder RT min 2V* [id number] IMPRESSION: No acute findings right shoulder.
--- NOTE | 2024-07-23 14:52 | XRR_ITS ---
PROCEDURE INFORMATION: Exam: XR Right Clavicle, Complete Exam date and time: 07/23/2024 3:31 PM Age: 33 years old Clinical indication: Pain; Other: Right clavicle; X1 month ago shoulder popped while working; Additional info: Acute right clavicle pain TECHNIQUE: Imaging protocol: Radiologic exam of the right clavicle. Complete exam. Views: Any number of views. COMPARISON: CR XR shoulder RT min 2V* [id number] 07/23/2024 3:31 PM FINDINGS: Bones/joints: No fracture or acute osseous abnormality is seen about the right clavicle. Sternoclavicular and AC joints appear unremarkable. Right shoulder appears unremarkable. No abnormal soft tissue calcification is seen. Soft tissues: No significant soft tissue abnormality. XR/[place] [id number] IMPRESSION: No acute findings right clavicle.
== END 2024-07-23 14:48 | disposition home or self-care (01) ==
LOC: RAD 14:49
PROVIDERS: PCP Family Medicine; Visit Provider Family Medicine
DX: M25.511 Pain in right shoulder (principal); Z01.419 Encounter for gynecological examination (general) (routine) without abnormal findings
CPT/HCPCS: 73000; 73030; 87624

== ENCOUNTER → 2024-07-25 07:57 | Outpatient (BNVA) | payer MEDICAID, SELFPAY | PROVIDERS: PCP Family Medicine; Visit Provider Family Medicine | DX: I10 Essential (primary) hypertension (principal); N92.6 Irregular menstruation, unspecified | CPT/HCPCS: 80053; 80061; 82670; 83001; 83002; 83525; 84403; 85025 ==

== ENCOUNTER → 2024-08-21 07:43 | Outpatient (BNVA) | payer MEDICAID, SELFPAY | PROVIDERS: PCP Family Medicine | DX: S99.912A Unspecified injury of left ankle, initial encounter (principal); W10.8XXA Fall (on) (from) other stairs and steps, initial encounter; M70.972 Unspecified soft tissue disorder related to use, overuse and pressure, left ankle and foot | CPT/HCPCS: 73610 ==

== ENCOUNTER 2024-09-03 09:19 | Outpatient (CLI) | payer MEDICAID, SELFPAY ==
--- NOTE | 2024-09-03 09:22 | XRR_ITS ---
PROCEDURE INFORMATION: Exam: XR Left Ankle Exam date and time: 09/03/2024 10:03 AM Age: 34 years old Clinical indication: Injury or trauma; Blunt trauma; Left; Injury date: 2 weeks ago; Injury details: Fall down stairs x2 weeks, pain and swelling in ankle; Additional info: Left medial ankle pain TECHNIQUE: Imaging protocol: Radiologic exam of the left ankle. Views: 3 or more views. Total images: 3 COMPARISON: CR XR ankle LT min 3V* [id number] 08/21/2024 7:47 AM FINDINGS: Bones/joints: An enthesophyte is noted at the Achilles tendon insertion site. Incidental os trigonum accessory ossicle. No acute fracture nor subluxation. No osseous erosion nor periosteal reaction. Soft tissues: Normal. XR/XR ankle LT min 3V* [id number] IMPRESSION: No acute osseous pathology.
== END 2024-09-03 09:20 | disposition home or self-care (01) ==
LOC: LAB 09:20
PROVIDERS: PCP Family Medicine; Visit Provider Family Medicine
DX: S99.912A Unspecified injury of left ankle, initial encounter (principal); M77.8 Other enthesopathies, not elsewhere classified; R93.6 Abnormal findings on diagnostic imaging of limbs; X58.XXXA Exposure to other specified factors, initial encounter
CPT/HCPCS: 73610

== ENCOUNTER 2024-09-10 10:38 | Outpatient (CLI) | payer MEDICAID, SELFPAY ==
--- NOTE | 2024-09-10 11:00 | MR_ITS ---
WS: [id number] MRI LEFT ANKLE WITHOUT CONTRAST. COMPARISON: Radiograph 09/03/2024 Multiplanar, multisequence imaging is performed without contrast. No acute fracture. Distal tibia and fibula are intact with no marrow edema. Normal appearance of the talus and calcaneus. Although there is no separation of the syndesmosis there is a small amount of fluid between the distal fibula and tibia. Anterior inferior and posterior inferior tibiofibular ligaments are intact. There is fluid coursing along the anterior inferior tibiofibular ligament but no definite tear. Partial tear not excluded. High-grade tear involving the anterior talofibular ligament. There is also abnormal signal within the posterior talofibular ligament consistent with a high-grade tear. No full-thickness tear. Calcaneofibular ligament is wavy with adjacent fluid suggesting least a partial tear distally at the calcaneus. Normal deltoid ligament. Normal Achilles tendon. There is edema in Kager's fat pad. There is additional edema extending posterior to the ankle and extending several centimeters superior to the tibiotalar joint. Normal peroneal tendons. Flexor hallucis longus, flexor digitorum longus and the posterior tibial tendons are normal. Anterior tibial tendon is normal. Extensor tendons are normal. MR/MR ankle LT wo con* [id number] IMPRESSION: 1. No acute fractures or marrow edema. 2. Mild high ankle sprain. Although no separation between the distal tibia and fibula there is increased fluid through the syndesmotic ligament. 3. High-grade tear anterior and posterior talofibular ligaments. 4. Suspect partial tear of the calcaneofibular ligament. 5. There is fluid along the course of the anterior inferior tibiofibular ligam ent although it appears mostly intact. Minor tear not excluded. 6. Extensive edema surrounding the ankle extending several centimeters above t he tibiofibular joint.
== END 2024-09-10 10:39 | disposition home or self-care (01) ==
LOC: RAD 10:40
PROVIDERS: PCP Family Medicine; Visit Provider Family Medicine
DX: S93.492A Sprain of other ligament of left ankle, initial encounter (principal); X58.XXXA Exposure to other specified factors, initial encounter; R93.6 Abnormal findings on diagnostic imaging of limbs; R60.0 Localized edema
CPT/HCPCS: 73721

== ENCOUNTER → 2024-11-07 14:40 | Outpatient (BNVA) | payer MEDICAID, SELFPAY | PROVIDERS: PCP Family Medicine; Visit Provider Family Medicine | DX: R10.84 Generalized abdominal pain (principal) | CPT/HCPCS: 80053; 81000; 82150; 83690; 85025; 87086 ==

== ENCOUNTER 2024-11-11 15:45 | Emergency (ER) | payer MEDICAID, SELFPAY ==
[2024-11-11 15:50] VITALS: BP 120/67; PULSE 85; RESP 17; TEMP 37.1; O2SAT 99; BMI 27.2
--- NOTE | 2024-11-11 15:59 | CTR_ITS ---
PROCEDURE INFORMATION: Exam: CT Abdomen And Pelvis Without Contrast Exam date and time: 11/11/2024 4:56 PM Age: 34 years old Clinical indication: Abdominal pain; Flank; Right; Prior surgery; Surgery date: 6+ months; Surgery type: Gb, hernia, tubal; Additional info: R flank pain TECHNIQUE: Imaging protocol: Computed tomography of the abdomen and pelvis without contrast. Radiation optimization: All CT scans at this facility use at least one of these dose optimization techniques: automated exposure control; mA and/or kV adjustment per patient size (includes targeted exams where dose is matched to clinical indication); or iterative reconstruction. COMPARISON: CT abdomen pelvis w con* [id number] 11/20/2020 1:31 PM RADIATION DOSE METRICS: Total DLP (mGy-cm): 1201.73 FINDINGS: Liver: Normal. No mass. Gallbladder and biliary ducts: Probable cholecystectomy clips. Pancreas: Normal. No ductal dilation. Spleen: Normal. No splenomegaly. Adrenal glands: Normal. No mass. Kidneys and ureters: Normal. No hydronephrosis. Stomach and bowel: Probable mild focal diverticulitis of the mesenteric aspect of the cecum. Appendix: No evidence of appendicitis. Intraperitoneal space: Unremarkable. No free air. No significant fluid collection. Vasculature: Unremarkable. No abdominal aortic aneurysm. Lymph nodes: Unremarkable. No enlarged lymph nodes. Urinary bladder: Unremarkable as visualized. Reproductive: Unremarkable as visualized. Bones/joints: Unremarkable. No acute fracture. Soft tissues: Unremarkable. CT/CT kidney stone [id number] IMPRESSION: Probable mild focal diverticulitis of the mesenteric aspect of the cecum.
--- NOTE | 2024-11-11 16:00 | ED_ITS ---
HPI - Back Pain/Injury 2 General: Chief Complaint: Back Pain/Injury Stated Complaint: lower back pain Time Seen by Provider: 11/11/24 15:48 Source: patient Mode of arrival: ambulatory Limitations: no limitations History of Present Illness: 34-year-old female who states she been h aving right flank pain since Monday. States she had her urine checked by her PCP on Monday and no signs infection states she is continue to have some pain in her flank. States is worse with movement she rates it a 5 out of 10 she denies any abdominal pain denies any vomiting or diarrhea did Associated symptoms: Deny abdominal pain, chills, dysuria, fever(s), nausea or vomiting Related Data Previous Rx's ?Medication ?Instructions ?Recorded lisinopril 20 1 tab PO QAM #90 tabs mg-hydrochlorothiazide 25 mg tablet omeprazole 40 mg capsule,delayed 40 mg PO DAILY #90 ca ps 08/13/24 release celecoxib 200 mg capsule (Celebrex) 200 mg PO DAILY #3 0 caps 09/03/24 cam walker boot #1 ea 09/09/24 ASO #1 ea 09/11/24 metformin 500 mg tablet,extended 500 mg PO DAILY #90 t abs 09/20/24 release 24 hr (Glucophage XR) tirzepatide (weight loss) 7.5 7.5 mg (0.5 mL) SUBCUT . weekly #2 10/29/24 mg/0.5 mL subcutaneous pen injector mL meclizine 50 mg tablet (Antivert) 50 mg PO BID PRN mot ion sickness 11/05/24 #20 tabs ondansetron 8 mg disintegrating 8 mg PO DAILY PRN naus ea and 11/07/24 tablet vomiting 5 days #20 tabs amoxicillin 500 mg-potassium 1 tab PO BID #14 tabs 08/02 clavulanate 125 mg tablet (Augmentin) doxycycline hyclate 100 mg capsule 100 mg PO DAILY #30 caps 11/11/24 hydrocodone 5 mg-acetaminophen 325 1 tab PO Q6H PRN pa in #14 tabs 11/11/24 mg tablet ondansetron 4 mg disintegrating 4 mg PO Q6H PRN nausea and 11/11/24 tablet vomiting #14 tabs Allergies Allergy/AdvReac Type Severity Reaction Status Date / Time sulfamethoxazole (From Allergy Severe hives, Verified 11/11/24 15:14 Bactrim) difficulty breathing trimethoprim (From Bactrim) Allergy Severe hives, Verified 11/11/24 15:14 difficulty breathing Review of Systems 2 Const: Denies: fever(s), chills, body aches or change in appetite ENMT: Denies: throat pain or dental pain Card: Denies: chest pain Resp: Denies: dyspnea GI: Denies: abdominal pain, nausea, vomiting or diarrhea : Reports: flank pain; Denies: dysuria Musc: Denies: neck pain or back pain Skin/Breast: Denies: rash Neuro: Denies: headache(s) PFSH ED 2 PFSH: Medical History (Updated 11/11/24 @ 18:14 by Yung Berumen MD) Left ankle injury Fall (on) (from) other stairs and steps, initial encounter Morbid obesity with BMI of 45.0-49.9, adult History of nephrolithiasis GERD (gastroesophageal reflux disease) Nicotine dependence, cigarettes, uncomplicated Essential hypertension Surgical History Status post carpal tunnel release right History of cholecystectomy H/O hernia repair umbilical H/O tubal ligation Family History Father Congenital heart disease defect; has pacemaker; has had [place] CAD (coronary artery disease) Mother Hypertension Grandmother Cancer breast/lung/bone Diabetes mellitus, type 2 Social History Smoking and tobacco/nicotine status: current every day tobacco/nicotine user cigarettes Packs smoked per day: 1 Quit status (tobacco/nicotine): not considering quitting Second hand smoke exposure: Yes Alcohol intake: never Substance/Drug Use: never Household members: children Marital status: Number of children: 3 Highest education level completed: High School Graduate Current occupational status: employed Current occupation: [employer] Exam 2 Const: COMMON NORMALS: no acute distress, patient oriented x3 and healthy appearing HENMT: COMMON NORMALS: normocephalic and atraumatic HEAD & SCALP: n ormocephalic and atraumatic Neck/C-Spine: COMMON NORMALS: full ROM and supple Chest: COMMONS NORMALS: normal inspection of the chest and normal palpation of entire chest wall Resp: COMMON NORMALS: normal respiratory effort, No retractions, No use of accessory muscles and clear to auscultation bilaterally AUSCULTATION: clear to auscultation bilaterally Cardio: COMMON NORMALS: regular rate, regular rhythm and No murmurs present (Cardio) RATE: regular rate RHYTHM: regular rhythm GI: COMMON NORMALS: Normal to inspection, nondistended, normoactive bowel sounds present, Soft to palpation, non-tender and no masses PALPATION: Yes Soft to palpation Back/Pelvis: OTHER: Right lower back tenderness Extremity: COMMON NORMALS: normal to inspection and full ROM Neuro: COMMON NORMALS: patient oriented x3, moves all extremities and no focal motor deficits Psych: COMMON NORMALS: mental status grossly normal, Normal thought process present and cooperative THOUGHT PROCESS: Normal thought process present Skin: COMMON NORMALS: no rashes or lesions noted and no wounds GENERAL SKIN EXAM: no rashes or lesions noted Course 2 Vital Signs: Vital signs: Vital Signs Temperature 98.7 F 11/11/24 15:50 Pulse Rate 85 11/11/24 15:50 Respiratory Rate 17 11/11/24 15:50 Blood Pressure 136/80 11/11/24 18:09 Pulse Oximetry 99 11/11/24 18:09 Oxygen Delivery Me thod Room Air 11/11/24 18:09 MDM - Back Pain/Injury Medical Decision Making Patient presents here with flank pain CT shows a mild diverticulitis we will place her on Augmentin will prescribe her pain meds she is to follow-up return if worsening. Medical Records I reviewed the patient's medical records. Labs I reviewed the patient's lab results. 11/11/24 16:06 11/11/24 16:06 Radiology Impressions Abdomen/Pelvis CT 11/11/24 15:59 IMPRESSION: Probable mild focal diverticulitis of the mesenteric aspect of the cecum. Laboratory Results WBC 7.19 10^3/uL (3.29-11.43) 11/11/24 16:06 RBC 4.10 10^6/uL (3.85-5.65) 11/11/24 16:06 Hgb 12.00 g/dL (11.27-16.99) 11/11/24 16:06 Hct 35.0 % (36-47) L 11/11/24 16:06 MCV 85.4 fl (85-98) 11/11/24 16:06 MCH 29.3 pg (27-33) 11/11/24 16:06 MCHC 34.3 g/dL (30-55) 11/11/24 16:06 RDW 13.5 % (12.1-15.1) 11/11/24 16:06 Plt Count 298 10^3/cmm (157-399) 11/11/24 16:06 MPV 10.6 fL (7.4-10.4) H 11/11/24 16:06 Neut % (Auto) 61.5 % 11/11/24 16:06 Lymph % (Auto) 28.8 % 11/11/24 16:06 [place] % (Auto) 7.1 % 11/11/24 16:06 Eos % (Auto) 1.8 % 11/11/24 16:06 Baso % (Auto) 0.4 % 11/11/24 16:06 Neut # (Auto) 4.42 10^3/uL (1.8-7.7) 11/11/24 16:06 Lymph # (Auto) 2.1 10^3/uL (0.8-4.8) 11/11/24 16:06 [place] # (Auto) 0.5 10^3/uL (0.2-0.9) 11/11/24 16:06 Eos # (Auto) 0.1 10^3/uL (0.0-0.8) 11/11/24 16:06 Baso # (Auto) 0.0 10^3/uL (0.0-0.1) 11/11/24 16:06 Nucleated RBC % (auto) 0 % 11/11/24 16:06 Nucleated RBCs # 0.0 /100WBC 11/11/24 16:06 Sodium 141 mmol/L (136-145) 11/11/24 16:06 Potassium 3.9 mmol/L (3.5-5.1) 11/11/24 16:06 Chloride 107 mmol/L (98-107) 11/11/24 16:06 Carbon Dioxide 24 mmol/L (22-29) 11/11/24 16:06 Anion Gap 13.9 (5-19) 11/11/24 16:06 BUN 7 mg/dL (6-20) 11/11/24 16:06 Creatinine 1.0 mg/dL (0.5-0.9) H 11/11/24 16:06 GFR Calculation 63.1 mL/min (90-130) L 11/11/24 16:06 Glucose 102 mg/dL (65-115) 11/11/24 16:06 Calculated Osmolality 290 mOsm/kg (285-295) 11/11/24 16:06 Calcium 8.8 mg/dL (8.5-10.5) 11/11/24 16:06 Total Bilirubin 0.3 mg/dL (0.15-1.2) 11/11/24 16:06 AST 32 U/L (0-32) 11/11/24 16:06 ALT 33 U/L (0-33) 11/11/24 16:06 Alkaline Phosphatase 69 U/L (35-105) 11/11/24 16:06 Total Protein 6.3 g/dL (6.6-8.7) L 11/11/24 16:06 Albumin 3.8 g/dL (3.5-5.2) 11/11/24 16:06 Globulin 2.5 g/dL (1.3-4.6) 11/11/24 16:06 Lipase 27 U/L (13-60) 11/11/24 16:06 HCG, Qual Negative (Negative) 11/11/24 16:06 Urine Color Dark yellow (Yellow) A 11/11/24 16:11 Urine Appearance Cloudy (CLEAR) A 11/11/24 16:11 Urine pH 5.5 (5-7) 11/11/24 16:11 Ur Specific Commerce 1.052 (1.005-1.030) H 11/11/24 16:11 Urine Protein 1+ (Negative) A 11/11/24 16:11 Urine Glucose (UA) Negative (Normal) 11/11/24 16:11 Urine Ketones 1+ (Negative) H 11/11/24 16:11 Urine Blood Negative (Negative) 11/11/24 16:11 Urine Nitrate Negative (Negative) 11/11/24 16:11 Urine Bilirubin 2+ (Negative) H 11/11/24 16:11 Urine Urobilinogen 1.0 mg/dL (Negative) 11/11/24 16:11 Ur Leukocyte Esterase Trace (Negative) A 11/11/24 16:11 Urine RBC 11-20 /hpf (0-2) H 11/11/24 16:11 Urine WBC 0-4 /hpf (0-5) H 11/11/24 16:11 Ur Squamous Epith Cells 21-50 /hpf (0-5) H 11/11/24 16:11 Calcium Oxalate Crystal 25-40 /hpf H 11/11/24 16:11 Amorphous Sediment Not Reportable 11/11/24 16:11 Urine Bacteria Trace /hpf (NONE) 11/11/24 16:11 Hyaline Casts 5-10 /lpf H 11/11/24 16:11 All radiology interpretation(s) finalized by discharge Discharge Plan Discharge Patient Disposition: Home Clinical Impression: Diverticulitis Condition: Stable Prescriptions: New hydrocodone-acetaminophen 5-325 mg tablet 1 tab PO Q6H PRN (Reason: pain) Qty: 14 0RF ondansetron 4 mg tablet,disintegrating 4 mg PO Q6H PRN (Reason: nausea and vomiting) Qty: 14 0RF amoxicillin-pot clavulanate [Augmentin] 500-125 mg tablet 1 tab PO BID Qty: 14 0RF No Action celecoxib [Celebrex] 200 mg capsule 200 mg PO DAILY Qty: 30 1RF Rx Instructions: Take with food lisinopril-hydrochlorothiazide 20-25 mg tablet 1 tab PO QAM Qty: 90 1RF omeprazole 40 mg capsule,delayed release(DR/EC) 40 mg PO DAILY Qty: 90 1RF (DME) ASO See Rx Instructions .Route .MEDSUPPLY Qty: 1 0RF Rx Instructions: As directed tirzepatide (weight loss) 7.5 mg/0.5 mL pen injector 7.5 mg SUBCUT .weekly Qty: 2 0RF meclizine [Antivert] 50 mg tablet 50 mg PO BID PRN (Reason: motion sickness) Qty: 20 0RF ondansetron 8 mg tablet,disintegrating 8 mg PO DAILY PRN (Reason: nausea and vomiting) 5 Days Qty: 20 0RF doxycycline hyclate 100 mg capsule 100 mg PO DAILY Qty: 30 1RF (DME) cam walker boot See Rx Instructions .Route .MEDSUPPLY Qty: 1 0RF Rx Instructions: As directed metformin [Glucophage XR] 500 mg tablet extended release 24 hr 500 mg PO DAILY Qty: 90 0RF Discharge Orders: Discharge ED (Routine); Ordered 11/11/24 Ordered By: Yung Berumen Referrals: Jessica Tilley DO [Primary Care Provider, Family Practice] - 4-7 days Discharge Diet: Advance as tolerated Discharge Activity: Resume usual activity Patient Instructions: Diverticulitis (ED), Opioid Safety Stand Alone Forms: Work/School Release Print Language: Italian Coding Level of Care Code ED [employer] Operator for Carlos Trevizo
[2024-11-11 16:12] LABS: Hematocrit 35.0 % (36-47); Hemoglobin 12.00 g/dL (11.27-16.99); Mean Corpuscular HGB Conc 34.3 g/dL (30-55); Mean Corpuscular Hemoglobin 29.3 pg (27-33); Mean Corpuscular Volume 85.4 fl (85-98); Nucleated Red Blood Cells % 0 %; Platelet Count 298 10^3/cmm (157-399); Red Blood Count 4.10 10^6/uL (3.85-5.65); White Blood Count 7.19 10^3/uL (3.29-11.43)
[2024-11-11] MEDS: ondansetron 2 mg/ML SDV 2 mL 4 MG IVP (16:30)
[2024-11-11] MEDS: morphine 4 mg/mL SDV 1 mL IVP ×2 (16:30→18:22)
[2024-11-11 16:31] LABS: HCG, Serum Qual Negative (Negative)
[2024-11-11 16:34] LABS: Alanine Aminotransferase 33 U/L (0-33); Albumin Level 3.8 g/dL (3.5-5.2); Alkaline Phosphatase 69 U/L (35-105); Anion Gap 13.9 (5-19); Aspartate Amino Transferase 32 U/L (0-32); Blood Urea Nitrogen 7 mg/dL (6-20); Calcium 8.8 mg/dL (8.5-10.5); Carbon Dioxide 24 mmol/L (22-29); Chloride 107 mmol/L (98-107); Creatinine Clr Calc Pharmacy 70.7728; Globulin 2.5 g/dL (1.3-4.6); Glucose 102 mg/dL (65-115); Lipase 27 U/L (13-60); Osmolality Calculated 290 mOsm/kg (285-295); Potassium 3.9 mmol/L (3.5-5.1); Sodium 141 mmol/L (136-145); Total Protein 6.3 g/dL (6.6-8.7)
[2024-11-11 16:38] VITALS: BP 128/72; O2SAT 98
[2024-11-11 16:56] LABS: Glucose Urine UA Negative (Normal); Nitrate Urine Negative (Negative)
[2024-11-11 17:03] LABS: Add Urine Microscopic? YES
[2024-11-11 17:25] LABS: Specific Gravity, Urine 1.052 (1.005-1.030)
[2024-11-11 17:27] LABS: UA Manual Slide Review YES; UA Slide Review UA Slide Review Perf
[2024-11-11 18:09] VITALS: BP 136/80; O2SAT 99
[2024-11-11 18:22] VITALS: RESP 16
[2024-11-11 18:26] VITALS: BP 136/80; PULSE 75; O2SAT 98
== END 2024-11-11 18:29 | disposition home or self-care (01) ==
PROVIDERS: Emergency Provider Emergency Medicine; PCP Family Medicine
DX: K57.92 Diverticulitis of intestine, part unspecified, without perforation or abscess without bleeding (principal); Z79.84 Long term (current) use of oral hypoglycemic drugs; F17.210 Nicotine dependence, cigarettes, uncomplicated; I10 Essential (primary) hypertension
CPT/HCPCS: 74176; 80053; 81001; 83690; 84703; 85025; 96361; 96374; 96375; 96376; 99285; J2270; J2405; J7030

== ENCOUNTER → 2024-11-25 10:33 | Outpatient (BNVA) | payer MEDICAID, SELFPAY | PROVIDERS: PCP Family Medicine; Visit Provider Specialist | DX: S46.011A Strain of muscle(s) and tendon(s) of the rotator cuff of right shoulder, initial encounter (principal); X58.XXXA Exposure to other specified factors, initial encounter; G89.29 Other chronic pain | CPT/HCPCS: 73030 ==

== ENCOUNTER → 2025-01-09 10:55 | Outpatient (BNVA) | payer MEDICAID, SELFPAY | PROVIDERS: PCP Family Medicine; Visit Provider Family Medicine | DX: R00.2 Palpitations (principal); D50.9 Iron deficiency anemia, unspecified | CPT/HCPCS: 80053; 82728; 83550; 84443; 85025 ==

== ENCOUNTER 2025-03-03 11:59 | Outpatient (CLI) | payer MEDICAID, SELFPAY ==
--- NOTE | 2025-03-03 12:03 | XRR_ITS ---
PROCEDURE INFORMATION: Exam: XR Lumbosacral Spine Exam date and time: 03/03/2025 12:10 PM Age: 34 years old Clinical indication: Low back pain; X1day extreme back pain difficulty walking, ; additional info: Lumbar strain recurrent TECHNIQUE: Imaging protocol: Radiologic exam of the lumbosacral spine. Views: 2 or 3 views. COMPARISON: CT kidney stone [id number] 11/11/2024 4:56 PM FINDINGS: Bones/joints: Slight disc space narrowing at L4-L5. No significant degenerative changes. No acute fracture. Normal alignment. Soft tissues: Unremarkable. XR/XR lumbar spine 2-3V* [id number] IMPRESSION: No acute findings.
== END 2025-03-03 12:00 | disposition home or self-care (01) ==
LOC: RAD 11:59
PROVIDERS: PCP Family Medicine; Visit Provider Emergency Medicine
DX: S39.012A Strain of muscle, fascia and tendon of lower back, initial encounter (principal); X58.XXXA Exposure to other specified factors, initial encounter
CPT/HCPCS: 72100